=== PATIENT | female | born 1970 | race Hispanic/Latino ===

== ENCOUNTER → 2017-12-16 | Outpatient (CLI) | payer BC | END | disposition home or self-care (01) | LOC: SHCH 10:50 | PROVIDERS: ATTEND Internal Medicine Cardiovascular Disease | DX: I63.9 Cerebral infarction, unspecified (principal); G45.9 Transient cerebral ischemic attack, unspecified | CPT/HCPCS: 93880 ==

== ENCOUNTER → 2024-05-04 | Outpatient (CLI) | payer OTHER ==
[2024-05-04 12:49] LABS: CREATININE 0.9 mg/dL (0.5-1.0); POTASSIUM 4.5 mmol/L (3.5-5.1)
== END | disposition home or self-care (01) ==
LOC: LAB 10:45
PROVIDERS: ATTEND Internal Medicine Cardiovascular Disease
DX: I10 Essential (primary) hypertension (principal)
CPT/HCPCS: 36415; 80048

== ENCOUNTER → 2024-05-15 | Outpatient (CLI) | payer OTHER ==
[~2024-05-15] MED LIST: IOHEXOL 350 MG/ML 100ML INFUS..BTL IV ONE
== END | disposition home or self-care (01) ==
LOC: RAH 08:28
PROVIDERS: ATTEND Internal Medicine Cardiovascular Disease
DX: I25.10 Atherosclerotic heart disease of native coronary artery without angina pectoris (principal)
CPT/HCPCS: 75574; Q9967

== ENCOUNTER 2024-05-16 16:26 | Emergency (ER) | payer OTHER ==
[~2024-05-16] VITALS: Ht 154.9 cm; Wt 81.6 kg
[2024-05-16 16:30] VITALS: TEMP 98.6
[2024-05-16 16:54] LABS: BASOPHILS # (AUTO) 0.03 K/uL (0.00-0.20); BASOPHILS % (AUTO) 0.7 % (0.0-5.0); EOSINOPHILS % (AUTO) 4.5 % (0.0-8.0); HEMATOCRIT 40.7 % (36-48); IMMATURE GRANULOCYTE ABSOLUTE 0.01 K/uL (0-1); LYMPHOCYTES # (AUTO) 1.5 K/uL (1.0-4.8); LYMPHOCYTES % (AUTO) 33.6 % (21.0-51.0); MEAN CORPUSCULAR HEMOGLOBIN 29.5 pg (27.0-33.0); MEAN CORPUSCULAR HGB CONC 33.7 g/dL (32.0-36.0); MEAN CORPUSCULAR VOLUME 87.5 fL (79-99); MONOCYTES # (AUTO) 0.2 K/uL (0.1-1.0); MONOCYTES % (AUTO) 4.3 % (3.0-13.0); NEUTROPHILS # (AUTO) 2.5 K/uL (1.8-7.7); NEUTROPHILS % (AUTO) 56.7 % (40.0-77.0); PLATELET COUNT (AUTO) 157 K/uL (130-400); RED BLOOD CELL COUNT(AUTO) 4.65 MIL/uL (4.00-5.50); RED CELL DISTRIBUTION WIDTH 12.9 % (11.0-15.5); WHITE BLOOD COUNT (AUTO) 4.4 K/uL (4.8-10.8)
[2024-05-16 17:03] LABS: CREATININE 0.7 mg/dL (0.5-1.0); POTASSIUM 4.2 mmol/L (3.5-5.1)
[2024-05-16] MEDS ORDERED: NITROGLYCERIN 0.4 MG SL TAB SL PRN (18:00)
[2024-05-16] MEDS: morPHINE 2 MG SYG IVP STA (18:33)
[2024-05-16] MEDS: ASPIRIN 81MG CHEW TAB PO STA (18:33)
[2024-05-16] MEDS: ondanSETRON 4MG INJ IVP STA (18:41)
[2024-05-16 19:08] VITALS: BP 115/72; PULSE 59; RESP 16; O2SAT 98
== END 2024-05-16 19:12 | disposition home or self-care (01) ==
LOC: EDH 16:26
DX: R07.89 Other chest pain (principal); Z88.8 Allergy status to other drugs, medicaments and biological substances
CPT/HCPCS: 99285; 96374; 71045; 84484; 80048; 85025; 36415; 93005; J2270

== ENCOUNTER → 2025-06-21 | Outpatient (CLI) | payer OTHER ==
--- NOTE | 2025-06-21 20:23 | HMCIMG ---
EXAM: CT SCAN OF THE ABDOMEN AND PELVIS WITHOUT CONTRAST Clinical statement: Pelvic and perineal pain; history of cholecystectomy, appendectomy, hysterectomy, two sections, and partial bowel resection for obstruction. STUDY PROTOCOL: CT radiation dose protocol was performed in accordance with the principles of ALARA. A multislice CT scan of the abdomen and pelvis was done without intravenous contrast. Sections are obtained from the diaphragms to the inguinal region. RADIATION DOSE: CTDIvol 11.20 mGy; DLP 603.60 mGy???cm. CONTRAST: No intravenous contrast administered. COMPARISON: None provided. FINDINGS: LUNG BASE: No evidence of pleural effusion, atelectasis, or consolidation in the visualized lung bases. LIVER: Normal in size, morphology, and attenuation with smooth margins. No focal hepatic lesion or calcification. Mild fatty liver change. No intrahepatic or extrahepatic biliary dilatation. Alcon hepatis is normal. Portal vein, hepatic veins, and inferior vena cava are normal in caliber. GALL BLADDER: Status post cholecystectomy. No abnormal fluid or mass in the gallbladder fossa. PANCREAS: Normal in size, morphology, and attenuation. No focal lesion, pancreatic ductal dilatation, or peripancreatic fat stranding. SPLEEN: Normal in size, morphology, and attenuation without focal lesion. KIDNEYS: Both kidneys are normal in size, shape, position, and attenuation. No renal mass, calcification, or stone is seen in the parenchyma or collecting systems. No hydronephrosis or other evidence of obstructive uropathy. GIT /T/ PERITONEAL CAVITY: Stomach is distended but otherwise unremarkable; gastroesophageal junction, pylorus, and duodenum appear normal. Jejunal and ileal loops show normal distribution and caliber with preserved wall thickness and mucosal pattern. Incidental finding of stranding and swollen mesentery containing multiple soft tissue nodules with preserved fat surrounding mesenteric vessels and the nodules, imaging features compatible with mesenteric panniculitis. Scattered sigmoid colonic diverticulosis without adjacent inflammatory change. No CT evidence of acute appendicitis. Rectum and large bowel loops are well distended with fecal matter. No free intraperitoneal fluid or pneumoperitoneum. LYMPHNODES: No pathologically enlarged lymph nodes. A calcified mesenteric lymph node measuring approximately 2 cm in length is seen (series 2, image 25/99), compatible with a chronic, benign node. RETROPERITONEUM: Both adrenal glands are normal in morphology and attenuation. Abdominal aorta and inferior vena cava are normal in course and caliber. PELVIS: Urinary bladder demonstrates normal wall thickness and contour with clear lumen. Uterus is surgically absent. No free pelvic fluid. MUSCULOSKELETAL: Visualized osseous structures are unremarkable without acute fracture or destructive lesion. OTHER: Extra-abdominal and paraspinal soft tissues are normal. IMPRESSION: * CT features of mesenteric panniculitis, with stranding and nodularity of the mesenteric fat and preserved fat around mesenteric vessels and nodules. Correlate with clinical symptoms and inflammatory markers. * Mild hepatic steatosis. * Scattered sigmoid diverticulosis without CT evidence of acute diverticulitis. * Status post cholecystectomy and hysterectomy, with additional postoperative changes as described. * No CT evidence of urolithiasis, obstructive uropathy, or other acute intra-abdominal or pelvic pathology to definitively account for the reported pelvic and perineal pain. /[place]
== END | disposition home or self-care (01) ==
LOC: RAH 13:34
PROVIDERS: ATTEND Internal Medicine
DX: K76.0 Fatty (change of) liver, not elsewhere classified (principal); K57.30 Diverticulosis of large intestine without perforation or abscess without bleeding; K65.4 Sclerosing mesenteritis; R10.20 Pelvic and perineal pain unspecified side; Z90.49 Acquired absence of other specified parts of digestive tract; Z90.710 Acquired absence of both cervix and uterus
CPT/HCPCS: 74176